=== PATIENT | male | born 1950 | race Caucasian/White ===

== ENCOUNTER 2022-09-19 07:46 | Outpatient (CLI) | payer MEDICARE, BC, SELFPAY ==
[2022-09-19 14:20] LABS: Albumin* 4.2 g/dL (3.3-5.0)
[2022-09-19 14:21] LABS: Chloride* 107 mmol/L (96-114); Potassium* 4.7 mmol/L (3.6-5.1); Sodium* 142 mmol/L (135-149)
[2022-09-19 14:23] LABS: Alkaline Phosphatase* 60 U/L (40-150); Aspartate Amino Transferase* 22 U/L (12-35); Bilirubin Total* 0.7 mg/dL (0.1-1.5); Blood Urea Nitrogen* 13 mg/dL (7-30); Carbon Dioxide* 29 mmol/L (20-32); Cholesterol* 130 mg/dL (90-199); Estimated Glomerular Filt Rate 80 ml/min; Total Protein* 6.8 g/dL (6.0-8.3)
[2022-09-19 14:24] LABS: Alanine Aminotransferase* 28 U/L (4-50); Calcium* 9.1 mg/dL (8.4-10.6); Glucose* 87 mg/dL (60-115); HDL Cholesterol* 48 mg/dL (>=40); LDL Cholesterol Calculated 64 mg/dL (<100); Triglycerides* 90 mg/dL (40-149)
[2022-09-19 14:49] LABS: PSA Screen* 2.69 ng/mL (0.10-4.00)
[2022-09-19 15:03] LABS: Hepatitis C Virus Antibody* Negative (Negative)
== END 2022-09-19 07:47 | disposition home or self-care (01) ==
PROVIDERS: PCP Family Medicine; Visit Provider Family Medicine
DX: Z00.00 Encounter for general adult medical examination without abnormal findings (principal); E78.5 Hyperlipidemia, unspecified; R35.1 Nocturia; Z12.5 Encounter for screening for malignant neoplasm of prostate; Z11.59 Encounter for screening for other viral diseases; Z13.6 Encounter for screening for cardiovascular disorders
CPT/HCPCS: 80053; 80061; 84153; 86803

== ENCOUNTER 2023-08-25 07:30 | Outpatient (RCR) | payer MEDICARE, BC, SELFPAY ==
--- NOTE | 2023-07-14 08:50 | PT.OPE ---
PT [facility] Eval PT [facility] Outpatient Eval Start: 07/13/23 16:33 Freq: Status: Active Protocol: Document 07/14/23 08:48 CJT (Rec: 07/14/23 08:50 CJT [id number]) E-signed By Sorin Luna PT Physical Therapy Outpatient Evaluation Insurance Information Recert Due Date 10/12/23 Insurance Name Medicare B Medical Diagnosis M25.512 - L shoulder pain Treating Diagnosis M25.512 - L shoulder pain Referring Yamilet Lloyd MD Subjective Subjective Pt presents with complaints of L shoulder pain ongoing since last winter. Pt fell on the ice last winter. Shoulder hurts whenever her bears weight through his L UE or raises his arm overhead. Pt points to lateral shoulder as the source of his pain. Is able to golf without pain. Lifting his arm out to the side recreates his pain. Notes an occasional nagging pain when his arm is by his side. No issues while sleeping. Was carrying a bag for about 30 minutes yesterday and this made his shoulder a bit sore. Has 8lb weight at home that he uses occasionally for arm and wrist strength. 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) Preferred Name Mook Precautions Therapy Limitations/Systems Review Not Limited Objective Other/Pertinent Objective Cervical ROM - WFL R Shoulder ROM Flexion/Abduction/IR/ER - 155/ 165/L1/100 L Shoulder ROM Flexion/Abduction/IR/ER - 140/ 150/L1/90 R Shoulder Strength Flexion - 5/5 MMT Abduction - 5/5 MMT IR - 5/5 MMT ER - 5/5 MMT Empty Can - 5/5 MMT L Shoulder Strength Flexion - 4+/5 MMT *pain in lateral shoulder Abduction - 4+/5 MMT *pain in lateral shoulder IR - 4/5 MMT *pain in lateral shoulder ER - 5/5 MMT Empty Can - 5/5 MMT R Scapular Strength Rhomboid - 4+/5 MMT Mid Trap - 4+/5 MMT Lower Trap - 4+/5 MMT L Scapular Strength Rhomboid - 4+/5 MMT Mid Trap - 4+/5 MMT Lower Trap - 4+/5 MMT Palpation: pt reports tenderness/pain with palpation to L UT, levator, pec major, LHBT, infraspinatus, rhomboids , and subscap Posture: slight forward rounding of shoulders, subtle forward head position [place]'s: mildly positive Crossover: positive Reyes-Román: positive Neers: negative Speeds: negative Assessment Assessment/Impression Mook is a very pleasant 73 year old male who presents to our clinic with complaints of L shoulder pain ongoing since sustaining a fall on the ice last November. HIs pain is made worse with elevation of the arm and pt points to the outside of his shoulder as the source of his pain. Testing reveals deficits in pts L shoulder AROM and strength ( see objective). While his elevation has a hard end feel when his arm is raised passively, I am not too concerned about adhesive capsulitis at this time as his internal and external rotation ROM is quite good. I suspect that Mook may have a small tear in his supraspinatus and potentially subscapularis, but due to his well-preserved strength, I expect him to recover well with therapy. The nature of the pts condition was explained and all questions were answered to the pts satisfaction. Skilled PT services are medically necessary to address deficits and return patient to highest level of function. Recommend physical therapy sessions 1-2/ week for 4-6 weeks. Pt agrees with this plan. Printout of HEP was given for I completion and pt gives verbal understanding of each exercise . Primary Functional Limitations Reaching, lifting, elevation of L arm Plan of Care Rehabilitation Potential Good Physical Therapy Goals STG - To be completed in 2-3 weeks: 1. Pt will demonstrate improved shoulder flexion and abduction by 10+ degrees so that they may reach for cans of soup on top shelf in pantry . 2. Pt will report reduction in shoulder pain by factor of 2 with elevation so that he may hang clothes in closet with minimal irritation to L shoulder. LTG - To be completed in 6-8 weeks: 1. Pt to be I with HEP so that they may I manage progression of symptoms. 2. Pt will demo full and pain free shoulder ROM and strength so that they may return to recreational exercise with their friends. Treatment Plan/Direct Interventions Joint Mobilization,Manual Therapy,Self-Care/Home Management,Therapeutic Activities,Therapeutic Exercises Frequency/Duration 1-2/week for 4-6 weeks Patient Will Be Discharged From Therapy Completion of LTG(s),Skills Plateau,Independent w/HEP, Independently Progressing Evaluation Billing Untimed Code Treatment Minutes 45 PT Eval No Charge No Complexity Low Certification Information Initial Certification Date 07/14/23 Ending Certification Date 10/12/23 Provider Signature Shows Agreement With POC & Medical Necessity Physician Signature & Date Requested Please Sign/Date Here Physician Comment/Change : Physician NPI Number #
--- NOTE | 2023-08-11 09:25 | PT.OPDN ---
PT [facility] Outpatient Daily Note PT [facility] Outpatient Daily Note Start: 07/13/23 16:33 Freq: Status: Active Protocol: Document 08/11/23 07:22 CJT (Rec: 08/11/23 09:25 CJT [id number]) E-signed By Sorin Luna, PT PT OP Daily Progress Note Visit Information Note Type Recert/Progress Note Visit Number 6 Insurance Authorized Visits tbd Physician Authorized Visits eval and treat Insurance Information Recert Due Date 10/12/23 Insurance Name Medicare B Medical Diagnosis M25.512 - L shoulder pain Treating Diagnosis M25.512 - L shoulder pain Referring Yamilet Lloyd MD Subjective Subjective Pt doing well. Notes that his shoulder has been feeling better all week but still having a dull ache when he uses his L arm. Enjoyed exercises last week and these are going well at home. Feels these have been more appropriate for him. Preferred Name Mook Home Exercise Home Exercise Comments [id number] Objective Other/Pertinent Objective L Shoulder ROM Flexion/Abduction/IR/ER - 140/ 160/L1/90 L Shoulder Strength Flexion - 5/5 MMT *pain in lateral shoulder Abduction - 4+/5 MMT *minimal pain noted in lateral shoulder IR - 5/5 MMT ER - 5/5 MMT Empty Can - 5/5 MMT Patient Instructed in Risks/Benefits Yes Therapeutic Exercise Therapeutic Exercise Minutes (minutes) 40 Therapeutic Exercise: To Restore UBE x 4 minutes, alternating Functional Status fwd/back Shoulder IR/ER in 45 degrees abduction x 20 ea, RTB DB Scaption, 1#, 2# 2 x 15 Horizontal abduction, GTB x 15 Sleeper stretch at wall x 45 Supine shoulder flexion stretch with weighted dowel 2 x 60 Passive shoulder IR and flexion stretches in supine 2 x 60 ea Treatment Minutes Timed Code Treatment Minutes 40 Total Treatment Time 40 Billing Units Therapeutic Exercise Units 3 Assessment/Impression Assessment/Impression Mook has made significant progress during his time in PT , but his ROM in L shoulder flexion and IR remains limited and unchanged. The strength of his RTC is full at this time and has has minimal to no pain with testing. I do think Mook's primary issue at this time is adhesive capsulitis. He dose have signs of impingement in his shoulder but I think this is likely due to adhesive capsulitis versus RTC weakness as his RTC is strong. I think Mook would benefit from a referral to orthopedics for consultation on a cortisone injection as well as x-rays of the shoulder to determine the extent of any arthritis that may also be playing a role in his pain. For now, I have advised Mook to continue stretching consistently over the next two weeks and I will see him again for reassessment on 08/07. Plan of Care Physical Therapy Goals STG - To be completed in 2-3 weeks: 1. Pt will demonstrate improved shoulder flexion and abduction by 10+ degrees so that they may reach for cans of soup on top shelf in pantry . 2. Pt will report reduction in shoulder pain by factor of 2 with elevation so that he may hang clothes in closet with minimal irritation to L shoulder. MET LTG - To be completed in 6-8 weeks: 1. Pt to be I with HEP so that they may I manage progression of symptoms. 2. Pt will demo full and pain free shoulder ROM and strength so that they may return to recreational exercise with their friends. Daily Plan of Care Continue per POC Recertification Information Provider Signature Shows Agreement With POC & Medical Necessity
== END 2023-09-26 10:33 | disposition home or self-care (01) ==
PROVIDERS: PCP Family Medicine; Visit Provider Family Medicine
DX: M25.512 Pain in left shoulder (principal); Z51.89 Encounter for other specified aftercare
CPT/HCPCS: 97110; 97140; 97161

== ENCOUNTER 2023-08-30 15:04 | Outpatient (CLI) | payer MEDICARE, BC, SELFPAY ==
--- NOTE | 2023-08-30 15:30 | MR_ITS ---
[facility] [address] [address] Phone:?[phone] Fax:?[phone] Referring Physician Information: Kwan Wright M.D. [address] [address] Phone:?[phone] Fax:?[phone] Patient:Sandra Lewis D.O.B:?1950 Sex:?Male Phone:?[phone] [facility] MRN:?[id number] Exam Date:?08/30/2023 EXAM: MRI of the LEFT SHOULDER, without contrast CLINICAL: Left shoulder pain. Evaluate for rotator cuff tear. COMPARISONS: None available. TECHNICAL: Multiplanar multisequence MRI of the left shoulder was obtained. SEDATION: None. CONTRAST: None. FINDINGS: Rotator cuff: Supraspinatus/Infraspinatus: There is high-grade partial/near full-thickness interstitial insertional tearing of the distal supraspinatus tendon measuring approximately 5 mm in AP dimension on coronal series 5 images 10-11 and sagittal series 8 image 7 superimposed upon moderate tendinosis. There is mild tendinosis of the distal infraspinatus tendon without significant tendon tear. No significant fatty atrophy of the muscle bellies. Teres minor: No tendinosis, tear or atrophy. Subscapularis: No tendinosis, tear or atrophy. Bursae: Subacromial-subdeltoid: Mild bursal fluid. Subcoracoid: No significant bursal fluid. Coracoacromial arch: Acromion morphology: Type II. No os acromiale. Acromiohumeral space: Within normal limits. Coracohumeral space: Within normal limits. Biceps tendon, long head: Intraarticular and extraarticular segments intact without rupture, tendinopathy or displacement. There is mild fluid about the imaged proximal extra-articular tendon. Glenohumeral joint: Physiologic volume of joint fluid. Articular cartilage: No significant chondral loss. Capsule: No convincing evidence of capsular thickening or injury. Labrum: Ill-defined degenerative changes are seen to involve the anteroinferior labrum. Labrum otherwise appears intact as visualized on this nonarthrogram exam. No perilabral cyst identified. Bones: No suspicious marrow signal alteration, fracture or dislocation. Acromioclavicular joint: Advanced changes of arthrosis with inferior hypertrophic change seen to encroach upon the underlying supraspinatus. No AC joint injury/widening. IMPRESSION: 1. High-grade partial/near full-thickness tearing involving the insertional fibers of the distal supraspinatus tendon superimposed upon moderate tendinosis. Mild tendinosis of the infraspinatus tendon without significant tendon tear. 2. 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 3. Mild subacromial/subdeltoid bursitis. 4. Ill-defined degenerative changes involving the anteroinferior labrum. JCZ Electronically signed on 08/31/2023 8:40:00 AM by Pierre Matos D.O.
== END 2023-08-30 15:05 | disposition home or self-care (01) ==
PROVIDERS: PCP Family Medicine; Visit Provider Orthopaedic Surgery
DX: M25.512 Pain in left shoulder (principal); M75.101 Unspecified rotator cuff tear or rupture of right shoulder, not specified as traumatic; M19.011 Primary osteoarthritis, right shoulder; M75.51 Bursitis of right shoulder
CPT/HCPCS: 73221

== ENCOUNTER 2023-09-26 08:01 | Outpatient (CLI) | payer MEDICARE, BC, SELFPAY | END 2023-09-26 08:02 | disposition home or self-care (01) | PROVIDERS: PCP Family Medicine; Visit Provider Family Medicine | DX: Z00.00 Encounter for general adult medical examination without abnormal findings (principal); I10 Essential (primary) hypertension; E78.5 Hyperlipidemia, unspecified; Z12.5 Encounter for screening for malignant neoplasm of prostate | CPT/HCPCS: 80053; 80061; 84153 ==

== ENCOUNTER 2023-10-02 07:51 | Outpatient (CLI) | payer MEDICARE, BC, SELFPAY ==
--- NOTE | 2023-10-02 08:15 | CRLHL7_ITS ---
For Patients: As a result of the Century Cures Act, medical imaging exams and procedure reports are released immediately into your electronic medical record. You may view this report before your referring provider. If you have questions, please contact your health care provider. INDICATION: Smoking history. Atherosclerotic vascular disease. TECHNIQUE : Directed abdominal aortic and proximal common iliac artery ultrasound. FINDINGS: Mildly tortuous abdominal aorta and proximal common iliac arteries. Mildly ectatic distal abdominal aorta. Minimal scattered atherosclerotic plaque. No aneurysm. The proximal abdominal aorta measures 2.2 x 3 cm. The mid aorta measures 2.1 x 1.9 cm. The distal aorta measures 2.2 x 2.0 cm. The right proximal common iliac artery measures 1.2 x 1.4 cm. The left common iliac artery measures 1.2 x 1.3 cm. IMPRESSION: Mild ectasia of the distal abdominal aorta. No marilyn aneurysm. Scattered atherosclerotic plaque. Dictated by Brad Mays MD @ 10/02/2023 8:48:27 AM (Electronically Signed)
== END 2023-10-02 07:52 | disposition home or self-care (01) ==
LOC: US 07:51
PROVIDERS: PCP Family Medicine; Visit Provider Family Medicine
DX: I70.90 Unspecified atherosclerosis (principal); I70.0 Atherosclerosis of aorta; Z87.891 Personal history of nicotine dependence
CPT/HCPCS: 76706

== ENCOUNTER 2023-12-01 09:41 | Outpatient (CLI) | payer MEDICARE, SELFPAY ==
--- OUTSIDE RECORDS SUMMARY | 2023-12-01 09:43 | XMS_ITS | Encounter Summary ---
Author Name [facility] Organization [facility] Address [address] [place] [address] Support Name Relationship Address Phone JUANPABLOTYLER Next of Kin [address] [place] [id number] TYLER GERONIMO Emergency Contact [address] [place] [address] Insurance Providers: All historical and current Section Date Range: From patient's date of to the date document was created. This section includes the names of all active insurance providers for the patient. Insurance Provider Type of Coverage Plan Name Start of Policy Coverage End of Policy Coverage Group Number Member ID Insurance Provider's Telephone Number Policy Hare's Name Patient's Relationship to Policy Hare [place] SUPPLEMEN [place]ADELINE MEDIC ARE SUPPL EMENT Sep 15, 2017 [id number] [phone] JUANPABLO,YUAN AIG PATIENT MEDICARE (WNR) MEDICARE (M) PART A Jan 14, 2015 PART A [id number] [phone] JUANPABLO,CR AIG PATIENT MEDICARE (WNR) MEDICARE (M) PART B Jan 14, 2015 PART B [id number] [phone] JUANPABLO,CR AIG PATIENT MEDICARE (WNR) MEDICARE (M) PART A Jan 14, 2015 PART A [id number] [phone] JUANPABLO,CR AIG PATIENT MEDICARE (WNR) MEDICARE (M) PART B Jan 14, 2015 PART B [id number] [id number] [phone] JUANPABLO,CR AIG PATIENT [employer] [place] SUPPLEMEN [place]AD[place] INDIV IDUAL MEDI Sep 15, 2017 [id number] [phone] YUAN GERONIMO PATIENT Selected Encounter This section includes the information on record at [facility] for the Encounter. Date/Time Encounter Type Encounter Description Reason Provider Source Apr 21, 2023 08:40 AM OFFICE O/P EST LOW 20-29 MIN OPHTHALMOLOGY ICD-10-CM H34.8312 Tributary (branch) retinal vein occlusion, right eye, stable JENNIFER RODRIGUEZ Sheng Encounter Template Text not used by [facility] Assessments - Encounter Diagnoses This section includes the primary and secondary diagnoses documented for the Encounter. Date/Time Primary/Secondary Diagnosis Diagnosis Name Provider Source Apr 21, 2023 09:21 AM PRIMARY Tributary (branch) retinal vein occlusion, right eye, stable GENNY RODRIGUEZ [facility] Apr 21, 2023 09:21 AM SECONDARY Age-related nuclear cataract, bilateral GENNY RODRIGUEZ [facility] Apr 21, 2023 09:21 AM SECONDARY Other chorioretinal scars, right eye GENNY RODRIGUEZ [facility] Plan of Treatment: Future Appointments (+ 6 months) and Future Tests (+/- 45 days) The Plan of Treatment section includes future care activities for the patient from all [facility]. This section includes future appointments and future orders which are active, pending or scheduled. Future Appointments This section includes appointments that were scheduled to occur 6 months from the date of the Encounter, up to a maximum of 20 appointments. The data comes from all [facility] treatment facilities. Appointment Date/Time Appointment Type Appointme nt Facility Name Sep 14, 2023 12:00 PM AMBULATORY - [facility]INE [facility] Social History: Smoking Status (Most current) and Tobacco Use (All prior to encounter date) This section includes the most current, and the historical, smoking and tobacco- related health factors from the [facility] facility where the Encounter took place. Current Smoking Status This section includes the most current smoking, or tobacco-related health factor, from the [facility] facility where the Encounter took place. Date/Time Current Smoking Status Comment Lluvia lopez Dec 21, 2022 08:15 AM VA-TOBACCO FORMER USER [facility] Tobacco Use History This section includes a history of the smoking, or tobacco-related health factors, that were collected on or before the date of the Encounter. The data comes from the [facility] facility where the Encounter took place. Date/Time Smoking Status/Tobacco Use Comment F acility Dec 21, 2022 08:15 AM VA-TOBACCO QUIT 15 YRS OR MORE [facility] Nov 29, 2021 09:00 AM VA-TOBACCO FORMER USER [facility] Nov 29, 2021 09:00 AM VA-TOBACCO QUIT 15 YRS OR MORE [facility] Mar 27, 2019 03:22 PM VA-TOBACCO FORMER USER [facility] Mar 27, 2019 03:22 PM VA-TOBACCO QUIT 15 YRS OR MORE [facility] Encounter Notes: All associated encounter notes This section contains the clinical notes associated to the Encounter. Date/Time Encounter Note(s) Provider Source Apr 21, 2023 09:16 AM OPHTHALMOLOGY ATTE NDING NOTE: LOCAL TITLE: OPHTHALMOLOGY CLINIC NOTE STANDARD TITLE: OPHTHALMOLOGY ATTENDING NOTE DATE OF NOTE: APR 21, 2023@09:16 ENTRY DATE: APR 21, 2023@09:17:01 AUTHOR: JENNIFER RODRIGUEZ COSIGNER: URGENCY: STATUS: COMPLETED Clinic Progress Note Chief complaint: Here for a Complete eye exam. Patient states he hasn't noticed any vison changes OU since last visit. States his eyes water at times. Problem List - Active - NONE FOUND Surgeries: SURGERIES - NONE FOUND Full Exam Eye Medications Patient denies eye medication use. Allergies: Patient has answered NKA No new Allergies. Past eye history: Cataracts : OU Past eye surgeries: Cataract: OU Other: BRVO OD, Chorioretinal scar OD Social History: Alcohol use - Yes Tobacco use - No Last refraction: Vision: OD:CC(with glasses) OD: 20/20 Pinhole: 20/ Near: 20/ Vision: OS:CC(with glasses) 0S: 20/20-1 Pinhole: 20/ Near: 20/ Current glasses: OD:-3.25 +1.58R130 Prism: OS:-3.50 +1.57Q385 Prism: Add: +2.50 Refraction: Manifest: YES Automated: NO OD:-3.25 +1.20S508 20/20 OS:-3.50 +1.76C394 20/20-1 Balance: Add: +2.50 Near vision: OD : OS : OU 20/20 Comment: Confrontational Doss: Full to finger counting: Right: Yes Left: Yes Extra Ocular Movement: Normal Pupils: Right: Round Left: Round Size: Right: 4.5 Left: 4.5 React to light: Right: Yes Left: Yes Afferent pupil defect: Right:No Grade: Left: No Grade: Note: Intra-ocular pressure (IOP): OD: 17 OS: 20 iCare Dilation: OU AT 8:59 AM I have reviewed the isotope technician's note and agree with their findings. Patient is alert and oriented x 3. SLE, both eyes: lids/lashes: no abnormality conjunctiva/sclera: white and quiet cornea: clear epithelium, stroma, and no guttae anterior chamber: deep and quiet iris: round and flat lens: 1-2+ NSC anterior vitreous: clear DFE, right eye: vitreous: clear optic nerve: 0.3 cup/disc, pink and healthy macula: sharp foveal light reflex vessels: normal caliber and distribution periphery: CR scar DFE, left eye: vitreous: clear optic nerve: 0.3 cup/disc, pink and healthy macula: sharp foveal light reflex vessels: normal caliber and distribution periphery: normal without holes or tears OS Impression/Plan: 1. 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 No sequelae. - Monitor 2. Chorioretinal scar OD, - No associated CNV. - Monitor 3. Cataracts OU, incipient. - Monitor RTC 1 year vtd mr ou /es/ JENNIFER RODRIGUEZ M.D. DISABILITY REPRESENTATIVE Signed: 04/21/2023 09:23 JENNIFER RODRIGUEZ [facility] Apr 21, 2023 08:43 AM OPHTHALMOLOGY TECH NICIAN NOTE: LOCAL TITLE: RIGGING MAN NOTE STANDARD TITLE: RIGGING MAN NOTE DATE OF NOTE: APR 21, 2023@08:43 ENTRY DATE: APR 21, 2023@08:43:13 AUTHOR: ESTEFANIA DAN EXP COSIGNER: URGENCY: STATUS: COMPLETED Eye Start Exam Patient: RAQUEL GERONIOM Sex: MALE SSN: [id number] Birthdate: [birth year] Chief complaint: Here for a Complete eye exam. Patient states he hasn't noticed any vison changes OU since last visit. States his eyes water at times. History of Present Illness: Location: Intensity: Duration: Problem List - Active - NONE FOUND Surgeries: SURGERIES - NONE FOUND Full Exam Eye Medications Patient denies eye medication use. Allergies: Patient has answered NKA No new Allergies. Past eye history: Cataracts : OU Past eye surgeries: Cataract: OU Other: BRVO OD, Chorioretinal scar OD Social History: Alcohol use - Yes Tobacco use - No Last refraction: Vision: OD:CC(with glasses) OD: 20/20 Pinhole: 20/ Near: 20/ Vision: OS:CC(with glasses) 0S: 20/20-1 Pinhole: 20/ Near: 20/ Current glasses: OD:-3.25 +1.73K591 Prism: OS:-3.50 +1.75I285 Prism: Add: +2.50 Refraction: Manifest: YES Automated: NO OD:-3.25 +1.18J974 20/20 OS:-3.50 +1.67B236 20/20-1 Balance: Add: +2.50 Near vision: OD : OS : OU 20/20 Comment: Confrontational Doss: Full to finger counting: Right: Yes Left: Yes Extra Ocular Movement: Normal Pupils: Right: Round Left: Round Size: Right: 4.5 Left: 4.5 React to light: Right: Yes Left: Yes Afferent pupil defect: Right:No Grade: Left: No Grade: Note: Intra-ocular pressure (IOP): OD: 17 OS: 20 iCare Dilation: OU AT 8:59 AM /steffi/ ESTEFANIA DAN Health Accounting Policy Consultant Signed: 04/21/2023 09:04 ESTEFANIA DAN [facility]
--- OUTSIDE RECORDS SUMMARY | 2023-12-01 09:43 | XMS_ITS | Encounter Summary ---
Author Name [facility] Organization [facility] Address [address] [place] [address] Support Name Relationship Address Phone JUANPABLO TYLER Next of Kin [address] [place], [place] [id number] TYLER GERONIMO Emergency Contact [address] [place], [place] [phone] Insurance Providers: All historical and current Section [...] MEDIC ARE SUPPL EMENT Sep 15, 2017 [id number] [phone] JUANPABLO,CR AIG PATIENT MEDICARE (WNR) MEDICARE (M) PART A Jan 14, 2015 PART A [id number] [phone] JUANPABLO,CR AIG PATIENT MEDICARE (WNR) MEDICARE (M) PART B Jan 14, 2015 PART B [id number] [phone] JUANPABLO,CR AIG PATIENT MEDICARE (WNR) MEDICARE (M) PART A Jan 14, 2015 PART A [id number] JUANPABLO,CR AIG PATIENT MEDICARE (WNR) MEDICARE (M) PART B Jan 14, 2015 PART B [id number] [phone] JUANPABLO,CR AIG PATIENT [employer] [place] SUPPLEMEN [place]ADELINE [place] INDIV IDUAL MEDI Sep 15, 2017 [id number] [phone] YUAN GERONIMO AIKayla PATIENT Selected Encounter This section includes the information on record at [place] for the Encounter. Date/Time Encounter Type Encounter Description Reason Provider Source Sep 14, 2023 12:00 PM Outpatient Encounter GENERAL INTERNAL MEDICINE ICD-10-CM Z02.71 Encounter for disability determination KYUNG ANDRADE [facility] Encounter Template Text not used by [place] Assessments - Encounter Diagnoses This section includes the primary and secondary diagnoses documented for the Encounter. Date/Time Primary/Secondary Diagnosis Diagnosis Name Provider Source Sep 14, 2023 11:16 AM PRIMARY Encounter for disability determination KYUNG ANDRADE [facility] Plan of Treatment: Future Appointments (+ 6 months) and Future Tests (+/- 45 days) The Plan of Treatment section includes future care activities for the patient from all [place] treatmentfacilities. This section includes future appointments and future orders which are active, pending or scheduled. Future Appointments This section includes appointments that were scheduled to occur 6 months from the date of the Encounter, up to a maximum of 20 appointments. The data comes from all [place] treatment facilities. Appointment Date/Time Appointment Type Appointme nt Facility Name Dec 21, 2023 09:00 AM AMBULATORY - NONE [facility] Dec 21, 2023 10:00 AM [facility] Encounter Notes: All associated encounter notes This section contains the clinical notes associated to the Encounter. Date/Time Encounter Note(s) Provider Source Sep 14, 2023 12:00 PM C & P EXAMINATION NOTE: LOCAL TITLE: C&P EXAMINATION STANDARD TITLE: C & P EXAMINATION NOTE DATE OF NOTE: SEP 14, 2023@12:00 ENTRY DATE: SEP 14, 2023@08:24:46 AUTHOR: KYUNG ANDRADE EXP COSIGNER: URGENCY: STATUS: COMPLETED Hypertension Disability Benefits Questionnaire Name of claimant/[place]: JUANPABLO GARCÍA Is this questionnaire being completed in conjunction with a [place] [id number], C&P Examination Request? [X] Yes [ ] No How was the examination completed? (check all that apply) [ ] In-person examination [X] Records reviewed [ ] Examination via approved video telehealth [ ] Other, please specify in comments box Comments: No response provided. Acceptable Clinical Evidence (GREGG) ------ Indicate method used to obtain medical information to complete this document: [X] Review of available records (without in-person or video telehealth examination) using the Acceptable Clinical Evidence (GREGG) process because the existing medical evidence provided sufficient information on which to prepare the questionnaire and such an examination will likely provide no additional relevant evidence. Evidence Review Evidence reviewed (check all that apply): [X] [place] electronic [place] record [X] [place] e-[place] [X] Other (please identify other evidence reviewed): [facility] DD 214 1. Diagnosis NOTE 1: For VA disability rating purposes, the term hypertension means that the diastolic blood pressure is predominantly 90mm or greater, and isolated systolic hypertension means that the systolic blood pressure is predominantly 160mm or greater with a diastolic blood pressure of less than 90mm. NOTE 2: For VA purposes, the INITIAL diagnosis of hypertension or isolated systolic hypertension must be confirmed by readings taken 2 or more times on at least 3 different days. Blood pressure results may be obtained from existing medical records or through scheduled visits for blood pressure measurements. 1A. Does the currently have a diagnosis of hypertension or isolated systolic hypertension based on the following criteria? [X] Yes [ ] No [X] Hypertension ICD code: I10 Date of diagnosis: UNKNOWN NOTE 3: ALSO complete appropriate questionnaires for hypertension-related complications, if any (such as Kidney, if renal insufficiency is attributable to hypertension). 2. Medical History 2A. Describe the history (including onset and course) of the 's hypertension condition (brief summary): FOLLOWED BY [facility] 2B. Does the [place]'s treatment plan include taking continuous medication for hypertension or isolated systolic hypertension? [X] Yes [ ] No If yes, list only those medications used for the diagnosed conditions: ENALAPRIL 2C. Was the 's initial diagnosis of hypertension or isolated systolic hypertension confirmed by blood pressure (BP) readings taken 2 or more times on at least 3 different days? [ ] Yes [ ] No [X] Unknown (If checked, proceed to questions 2D and 2E) 2D. Does the [place] have a history of a diastolic BP elevation to predominantly 100 or more? [ ] Yes [X] No 2E. Current (date of evaluation/s) blood pressure readings (sufficient if has a previously established diagnosis of hypertension): Reading #1: 121 / 82 Date of Readin12 21 2022 Reading #2: 136 / 72 Date of Readin11 29 2021 Reading #3: 127 / 82 Date of Readin04 29 2019 The should be seated comfortably with back and feet supported. There is no need to take lying or standing blood pressures. There is no specified time interval between readings and they may be completed sequentially. 3. Other Pertinent Physical Findings, Complications, Conditions, Signs, Symptoms and Scars 3A. Does the [place] have any other pertinent physical findings, complications, conditions, signs or symptoms related to the conditions listed in the Diagnosis Section above? [ ] Yes [X] No 3B. Does the have any scars (surgical or otherwise) related to any conditions or to the treatment of any conditions listed in the Diagnosis Section above? [ ] Yes [X] No 3C. Comments, if any: No response provided 4. Functional Impact Does the [place]'s hypertension or isolated systolic hypertension impact his or her ability to work? [ ] Yes [X] No 5. Remarks, If Any [place]LL[place] /steffi/ KYUNG ANDRADE NP NURSE PRACTITIONER Signed: 09/14/2023 08:24 KYUNG ANDRADE [facility]
--- OUTSIDE RECORDS SUMMARY | 2023-12-01 09:43 | XMS_ITS | Continuity of Care Document ---
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 It does not include entries that were removed or entered in error. Problem Status Onset Date Problem Type Date of Resolution Comments Source Hyperlipidemia Active Condition [facility] Hypertension Active Condition [facility] Polyp of colon Active Condition [facility] Diagnosis: ICD-10-CM Z02.71 Encounter for disability determination Active Diagnosis ELSI LEVY [facility] Diagnosis: ICD-10-CM H34.8312 Tributary (branch) retinal vein occlusion, right eye, stable Active Diagnosis [facility] Diagnosis: ICD-10-CM Z00.01 Encounter for general adult medical exam w abnormal findings Active Diagnosis [facility] Medications Combined list of outpatient medications from Department of [facility] and Veterans Affairs facilities.Medications provided include 1) outpatient medications from the last 15 months, and 2) patient-reported medications. Medication Details Route Status Patient Instructions Prescription Expires Prescription Number Last Dispense Date Ordering Provider Order Date Source ATORVASTATI N [place] 40MG TAB TAKE ONE-HALF TABLET BY MOUTH AT BEDTIME ORALLY ACTIVE CLARITZA 2018 [facility] ATORVASTATI N [place] 40MG TAB TAKE ONE-HALF TABLET BY MOUTH EVERY DAY ORAL ACTIVE [place] WALKER T [address] [facility] [facility] ENALAPRIL MALEATE 5MG TAB TAKE ONE TABLET BY MOUTH TWICE A DAY ORALLY ACTIVE CLARITZA 2018 [facility] ENALAPRIL MALEATE 5MG TAB TAKE ONE TABLET BY MOUTH TWICE A DAY ORAL ACTIVE LOUISE WALKER T 2016 [facility] MELATONIN CAP/TAB TAKE 10MG BY MOUTH AT BEDTIME ORALLY ACTIVE GILLES TREVIÑO 2018 [facility] Immunizations Combined list of available immunizations from the Department of Defense and Veterans Affairs facilities. Immunization Series Date Given Administered By Site Reaction Lot Number CVX Code Drug Front Office Java Developer Status Comments Source INFLUENZA, UNSPECIFIED FORMULATION 2020 88 complet ed [facility] COVID-19 (PFIZER), MRNA, LNP-S, PF, 30 MCG/0.3 ML DOSE 2 2020 208 complet ed PFR; [id number]; 1 [facility] COVID-19 (PFIZER), MRNA, LNP-S, PF, 30 MCG/0.3 ML DOSE 1 2020 208 complet ed PFR; [id number]; 1 [facility] TDAP 2018 115 complet ed [facility] ZOSTER RECOMBINANT 2 2018 187 complet ed [facility] ZOSTER RECOMBINANT 1 2017 187 complet ed [facility] INFLUENZA, INJECTABLE, QUADRIVALENT, PRESERVATIVE FREE 2017 150 complet ed [facility] INFLUENZA, SEASONAL, INJECTABLE 2016 141 complet ed [facility] INFLUENZA, HIGH DOSE SEASONAL 2015 135 complet ed [facility] PNEUMOCOCCAL CONJUGATE PCV 13 2015 133 complet ed [facility] INFLUENZA, HIGH DOSE SEASONAL 2014 135 complet ed [facility] TDAP 2014 115 complet ed [facility] PNEUMOCOCCAL POLYSACCHARID E PPV23 2013 33 complet ed [facility] Z[facility] LIVE 2010 121 complet ed [facility] Vital Signs Combined list of inpatient and outpatient Vital Signs from Department of [facility] and Veterans Affairs, ranging from 12 months to all on record, depending upon the facility. Vital Sign Value Date Comments Source SYSTOLIC BLOOD PRESSURE 121 12/21/2022 08:11:52 [facility] DIASTOLIC BLOOD PRESSURE 82 12/21/2022 08:11:52 [facility] PULSE OXIMETRY 96% 12/21/2022 08:11:52 [facility] WEIGHT 172.9 12/21/2022 08:11:52 [facility] BMI 27kg/m2 12/21/2022 08:11:52 [facility] PAIN 0 12/21/2022 08:11:52 [facility] HEIGHT 67 12/21/2022 08:11:52 [facility] TEMPERATURE 98.3 12/21/2022 08:11:52 [facility] PULSE 78 12/21/2022 08:11:52 [facility] RESPIRATION 17 12/21/2022 08:11:52 [facility] Encounters Combined list of: 1) Encounters from Department of Veterans Affairs facilities going back up to thelast 18 months. 2) Encounters from the Department of [facility] facilities going back up to 280 months. Location Location Details Encounter Type Encounter Number Reason For Visit Attending Provider ADM Date DC Date Status Disposition Source [facility] Outpatient Encounter [id number] Diagnos is: ICD-10- CM Z00.01 Encount er for general adult medical exam w abnorma l finding s
SYLMATH ILDE J 12/21 [facility] OFFICE O/P EST LOW 20-29 MIN [id number] Diagnos is: ICD-10- CM H34.831 2 Tributa ry (branch ) retinal vein occlusi on, right eye, stable< br/> GIORGIO RODRIGUEZ A 04/21 [facility] Outpatient Encounter [id number] Diagnos is: ICD-10- CM Z02.71 Encount er for disabil ity determi nation< br/> SHAHZAD ANDRADE DA 09/14 [facility] SNELLIN [facility] Social History Combined list of available smoking, tobacco, and other social history from Department of Defense and [facility] facilities. Social History Type Response Date Comment Sourc e Tobacco smoking status NHIS AL-TOBACCO FORMER USER 12/21/2022 [facility] History of tobacco use AL-TOBACCO QUIT 1 5 YRS OR MORE 12/21/2022 [facility] History of tobacco use AL-TOBACCO FORMER USER 11/29/2021 [facility] History of tobacco use VA-TOBACCO QUIT 1 5 YRS OR MORE 03/27/2019 [facility] History of tobacco use AL-TOBACCO FORMER USER 12/07/2018 [facility] History of tobacco use FORMER TOBACCO US ER 7Y OR GREATER 12/24/2015 [facility] Plan of Care List of future care activities from Department of [facility] Affairs facilities. Additional future care activities may be listed in the Assessment and Plan section. Date/Time Care Activity Care Activity Detail Facili ty 12/21/2023 AMBULATORY - NONE AMBULATORY - NONE [facility] 12/21/2023 AMBULATORY - MEDICINE AMBULATORY - MEDICI [facility] 04/15/2024 AMBULATORY - SURGERY AMBULATORY - SURGERY [facility] 12/22/2023 Laboratory - Contracting Support Specialist ry Order COMPREHENSIVE METABOLIC PANEL+MG PLASMA SP ONCE [facility] 12/22/2023 Laboratory - Contracting Support Specialist ry Order CBC and DIFF BLOOD SP [facility] 12/22/2023 Laboratory - Contracting Support Specialist ry Order HEMOGLOBIN A1C BLOOD SP [facility] 12/22/2023 Laboratory - Contracting Support Specialist ry Order LIPID PANEL,NON-FASTING PLASMA SP [facility] 12/22/2023 Laboratory - Contracting Support Specialist ry Order PSA SERUM SP [facility]
--- OUTSIDE RECORDS SUMMARY | 2023-12-01 09:43 | XMS_ITS | Encounter Summary ---
Author Name [facility] Organization [facility] Address [address] [place] [address] Support Name Relationship Address Phone JUANPABLO TYLER Next of Kin [address] [place] [id number] TYLER GERONIMO Emergency Contact [address] [place] [address] Insurance Providers: All historical and current [...] MEDIC ARE SUPPL EMENT Sep 15, 2017 [id number] [phone] JUANPABLO,CR AIG PATIENT MEDICARE (WNR) MEDICARE (M) PART A Jan 14, 2015 PART A [id number] [phone] JUANPABLO,CR AIG PATIENT MEDICARE (WNR) MEDICARE (M) PART B Jan 14, 2015 PART B [id number] [phone] JUANPABLO,CR AIG PATIENT MEDICARE (WNR) MEDICARE (M) PART A Jan 14, 2015 PART A [id number] [phone] JUANPABLO,CR AIG PATIENT MEDICARE (WNR) MEDICARE (M) PART B Jan 14, 2015 PART B [id number] JUANPABLO,CR AIG PATIENT [employer] [place] SUPPLEMEN MADELINE [place] INDIV IDUAL MEDI Sep 15, 2017 [id number] [phone] YUAN GERONIMO PATIENT Selected Encounter This section includes the information on record at [facility] for the Encounter. Date/Time Encounter Type Encounter Description Reason Provider Source Dec 21, 2022 08:15 AM Outpatient Encounter PRIMARY CARE/MEDICINE ICD-10-CM Z00.01 Encounter for general adult medical exam w abnormal findings HAYLEE STREETER Sheng Encounter Template Text not used by [facility] Assessments - Encounter Diagnoses This section includes the primary and secondary diagnoses documented for the Encounter. Date/Time Primary/Secondary Diagnosis Diagnosis Name Provider Source Dec 21, 2022 04:47 PM PRIMARY Encounter for general adult medical exam w abnormal findings LEA STREETER [facility] Dec 21, 2022 04:47 PM SECONDARY Benign prostatic hyperplasia with lower urinary tract symp [facility] Dec 21, 2022 04:47 PM SECONDARY Essential (primary) hypertension [facility] Dec 21, 2022 04:47 PM SECONDARY Other hyperlipidemia [facility] Plan of Treatment: Future Appointments (+ 6 months) and Future Tests (+/- 45 days) The Plan of Treatment section includes future care activities for the [facility] This section includes future appointments and future orders which are active, pending or scheduled. Future Appointments This section includes appointments that were scheduled to occur 6 months from the date of the Encounter, up to a maximum of 20 appointments. The data comes from all [facility] treatment facilities. Appointment Date/Time Appointment Type Appointme nt Facility Name Jan 24, 2023 07:00 AM AMBULATORY - NONE [facility] Apr 21, 2023 08:40 AM AMBULATORY - SURGERY [facility] Vital Signs: All taken on the encounter date This section contains inpatient and outpatient Vital Signs collected on the date of the Encounter. Date/Time Temperature Pulse Blood Pressure Respiratory Rate SP02 Pain Height Weight Body Mass Index Source Dec 21, 2022 08:11 AM 98.3 F 78 /min 121/82 mm[Hg] 17 /min 96 % 0 67 in 172.9 lb 27 [facility] Social History: Smoking Status (Most current) and Tobacco Use (All prior to encounter date) This section includes the most current, and the historical, smoking and tobacco- related health factors from the [facility] facility where the Encounter took place. Current Smoking Status This section includes the most current smoking, or tobacco-related health factor, from the [facility] where the Encounter took place. Date/Time Current Smoking Status Comment Lluvia lopez Dec 21, 2022 08:15 AM VA-TOBACCO FORMER USER [facility] Tobacco Use History This section includes a history of the smoking, or tobacco-related health factors, that were collected on or before the date of the Encounter. The data comes from the [facility] where the Encounter took place. Date/Time Smoking Status/Tobacco Use Comment Romie nunez Dec 21, 2022 08:15 AM VA-TOBACCO QUIT 15 YRS OR MORE [facility] Nov 29, 2021 09:00 AM VA-TOBACCO FORMER USER [facility] Nov 29, 2021 09:00 AM VA-TOBACCO QUIT 15 YRS OR MORE [facility] Mar 27, 2019 03:22 PM VA-TOBACCO FORMER USER [facility] Mar 27, 2019 03:22 PM VA-TOBACCO QUIT 15 YRS OR MORE [facility] Encounter Notes: All associated encounter notes This section contains the clinical notes associated to the Encounter. Date/Time Encounter Note(s) Provider Source Dec 21, 2022 08:13 AM INTERNAL MEDICINE OUTPATIENT NOTE: LOCAL TITLE: MEDICINE CLINIC NURSING NOTE STANDARD TITLE: INTERNAL MEDICINE OUTPATIENT NOTE DATE OF NOTE: DEC 21, 2022@08:13 ENTRY DATE: DEC 21, 2022@08:13:12 AUTHOR: LILY DYER COSIGNER: URGENCY: STATUS: COMPLETED MEDICINE CLINIC NURSING NOTE Has ADDENDA TYPE OF VISIT: Appointment Check In Type of appointment: In-person appointment REASON FOR VISIT: Annual Dr visit check in ALLERGIES: Patient has answered NKA VITAL SIGNS: Blood Pressure: 121/82 (12/21/2022 08:11) Pulse: 78 (12/21/2022 08:11) Respiration: 17 (12/21/2022 08:11) Temperature: 98.3 F [36.8 C] (12/21/2022 08:11) Weight: 172.9 lb [78.43 kg] (12/21/2022 08:11) Height: 67 in [170.2 cm] (12/21/2022 08:11) BMI: 27.1 O2 Sat: 96% (12/21/2022 08:11) Pain: 0 (12/21/2022 08:11) PAIN SCREEN: Patient is not having significant pain that they wish to discuss with their provider today. MEDICATION Over the Counter/Herbal Medications: The patient denies taking any outside medications or herbals. 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 has no concerns about toxic exposure(s) while serving in the Armed [employer]. The Cutler/caregiver was informed that we will continue to ask this screening question every 5 years. They can contact their provider/healthcare team if they have concerns about exposures and would like to be screened sooner. Printed information was offered and provided if desired. Suicide Screen: C-SSRS Screening [place] Suicide Severity Rating Scale (C-SSRS) screener 1. Over the past month, have you wished you were or wished you could go to sleep and not wake up? No 2. Over the past month, have you had any actual thoughts of killing yourself? No 3. Over the past month, have you been thinking about how you might do this? Response not required due to responses to other questions. 4. Over the past month, have you had these thoughts and had some intention of acting on them? Response not required due to responses to other questions. 5. Over the past month, have you started to work out or worked out the details of how to kill yourself? Response not required due to responses to other questions. 6. If yes, at any time in the past month did you intend to carry out this plan? Response not required due to responses to other questions. 7. In your lifetime, have you ever done anything, started to do anything, or prepared to do anything to end your life (for example, collected pills, obtained a gun, gave away valuables, went to the roof but didn't jump)? No 8. If YES, was this within the past 3 months? Response not required due to responses to other questions. Depression Screening: Perform PHQ-2 A PHQ-2 screen was performed. The score was 0 which is a negative screen for depression. Over the past two weeks, how often have you been bothered by the following problems? 1. Little interest or pleasure in doing things Not at all 2. Feeling down, depressed, or hopeless Not at all Alcohol Use Screen (AUDIT-C): Alcohol Screen: SCREEN FOR ALCOHOL (AUDIT-C) An alcohol screening test (AUDIT-C) was negative (score=4). 1. How often did you have a drink containing alcohol in the past year? Four or more times a week 2. How many drinks containing alcohol did you have on a typical day when you were drinking in the past year? One or two drinks 3. How often did you have six or more drinks on one occasion in the past year? Never Nursing Annual Screening: Fall History Screen During the past 12 months, have you had any falls? Patient does not report any falls in the past 12 months. MEDICATIONS: Patient is on one of the following medication classes: Antihypertensives, Antidepressants, Antipsychotics, Diuretics, or Controlled substance medication used for pain. FALL RISK ADVICE: Fall Risk Advice provided. Handout entitled Fall Prevention At Home reviewed and given to patient and/or significant other. Script Talk Screen Are you able to read your prescription bottles with your glasses, magnifiers or other aids? Yes or patient not taking any prescriptions. Skin Screen Patient reports any current pressure ulcers, a history of pressure ulcers, or a wound from a medical lead or Patient is bed-confined or a wheelchair-user or Patient requires assistance to transfer/change position No, Skin Screen is Negative Home Abuse/Violence Screen Is your home free of abuse and violence? Yes MOVE! Program Screen Body Mass Index (BMI)= 27.1 [place]: No data available [place] Hgb A1C: No data available [place] Hgb A1C: No data available Point of Care Hgb A1C: POC HGB A1C____ Outpatient Nutrition Screen Body Mass Index (BMI)= 27.1 [place]: No data available [place] Hgb A1C: No data available [place] Hgb A1C: No data available Point of Care Hgb A1C: POC HGB A1C____ Is patient's BMI less than 18.5? No Does patient have swallowing, coughing, or chewing problems affecting oral intake? No Has patient experienced unplanned weight loss or gain greater than 10 pounds over the last 2 months? No Is patient's Hgb A1C (Glycosylated Hemoglobin) greater than 9.5? Information not available Is patient receiving Total Parenteral Nutrition (TPN) or Tube Feedings? No Patient Health Education Screen BARRIERS/SPECIAL NEEDS: No barriers identified PREFERRED STYLE OF LEARNING: No preference stated Client Assistive Service (LYNETTE) Screen Does the patient require assistance with outpatient visit? No Tobacco Use Screening: The patient is a former tobacco user. The patient quit fifteen or more years ago. Herpes Zoster (Shingles) Vaccine: The patient declines to receive the recommended dose of zoster (shingles) vaccine. Immunization: ZOSTER RECOMBINANT Refusal Reason: PATIENT DECISION Patient refuses all immunization(s) in the ZOSTER group Date Documented: 12/21/22 08:16 Pneumococcal PPSV23 (Pneumovax): The patient declines to receive the recommended dose of PPSV23 vaccine. Immunization: PNEUMOCOCCAL POLYSACCHARIDE PPV23 Refusal Reason: PATIENT DECISION Patient refuses all immunization(s) in the PneumoPPV group Date Documented: 12/21/22 08:17 Homelessness/Food Insecurity Screen: In the past 2 months, have you been living in stable housing that you own, rent, or stay in as part of a household? Yes - Living in stable housing. Are you worried or concerned that in the next 2 months you may NOT have stable housing that you own, rent, or stay in as part of a household? No - Not worried about housing near future The Cutler reports the following: Within the past 12 months, you worried whether your food would run out before you got money to buy more. Never true Within the past 12 months, the food you bought just didn't last and you didn't have money to get more. Never true /steffi/ LILY DYER LPN STAFF NURSE Signed: 12/21/2022 08:18 12/21/2022 ADDENDUM STATUS: UNSIGNED You may not VIEW this UNSIGNED Addendum. LILY DYER [facility] Dec 21, 2022 06:00 AM INTERNAL MEDICINE NOTE: LOCAL TITLE: MEDICINE CLINIC NOTE STANDARD TITLE: INTERNAL MEDICINE NOTE DATE OF NOTE: DEC 21, 2022@06:00 ENTRY DATE: DEC 19, 2022@07:16:54 AUTHOR: HAYLEE STREETER COSIGNER: URGENCY: STATUS: COMPLETED Nurse's Notes Reviewed. Chief Complaint: Annual HPI: 72 year old pt with a history of dyslipidemia, elevated blood pressure who is here for his annual appt. Pt is currently co-managed with [facility]. Pt states that he is doing well. He reports being started on a medication for his nocturia and then for sleep (unable to recall the medications). Past medical history: *Hypertension *Dyslipidemia *Nocturia Medications: Active Non-VA Medications Status 1) Non-VA ATORVASTATIN CALCIUM 40MG TAB 20MG MOUTH AT ACTIVE BEDTIME 2) Non-VA ENALAPRIL MALEATE 5MG TAB 5MG MOUTH TWICE A ACTIVE DAY 3) Non-VA MELATONIN CAP/TAB 10MG MOUTH AT BEDTIME ACTIVE Non-VA TAMSULOSIN 0.4MG DAILy Non-VA TRAZADONE 150MG QHS PRN Medication allergies: NKDA IM - Immunizations Immunization Series Date Facility Reaction Info COVID-19 (Plex[facility]), MRNA, LNP-S, P* 2 12/13/2020 [place] <C> 1 11/22/2020 [place] <C> INFLUENZA, UNSPECIFIED FORMULATIO* [place] PNEUMOCOCCAL CONJUGATE PCV 13 [facility] C* TDAP [facility] C* <C> See the Detailed Immunizations Health Summary Component[DIM] for Comments Family History: *Sister with history of dementia/Alzheimer's, at age 66 *Father r/t emphysema at age 76. 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 walking, plays pickle ball. Review of Systems: Feels well, no weight loss, good appetite. No ENT complaints No chest pain, palpitations, dyspnea on exertion, orthopnea, PND or peripheral edema. No shortness of breath, cough or respiratory distress. No abdominal pain, N/V, diarrhea, constipation or change in bowel habits. No urinary hesitancy, frequency, dysuria, decreased stream, hematuria + Nocturia. No numbness, tingling or weakness No memory problems No depression, anxiety or sleep problems No joint pain or swelling. No bleeding, bruising, rashes or lesions. Physical Exam: VS: Blood Pressure: 121/82 (12/21/2022 08:11) Pulse: 78 (12/21/2022 08:11) Respiration: 17 (12/21/2022 08:11) Temperature: 98.3 F [36.8 C] (12/21/2022 08:11) Weight: 172.9 lb [78.43 kg] (12/21/2022 08:11) Height: 67 in [170.2 cm] (12/21/2022 08:11) BMI: 27.1 O2 Sat: 96% (12/21/2022 08:11) Pain: 0 (12/21/2022 08:11) General No apparent distress Well developed, well nourished HEENT: Oropharynx (OP): Clear, PERRLA, Tympanic Membranes (TM) and external auditory canals clear bilaterally, neck supple, thyroid normal Lymph: No cervical adenopathy No supraclavicular adenopathy Chest/Lungs: Bilaterally clear with no respiratory distress Cardiac: RRR with normal S1 and S2; without murmur, gallop, rub, No carotid bruits, Peripheral pulses good, No edema Abdominal: Soft, Non-Tender, Non-Distended, Bowel Sounds Present, No masses Musculoskeletal: Good ROM: No effusions Neuro: Cranial nerves 2-12 intact, Sensory/motor intact, gait is steady, negative Romberg Skin: No concerning lesions, bleeding, bruising or discoloration Mental status: Alert and oriented x 3 Mood: Well dressed and groomed : Lab Data: 09/2022 labs completed at his last wellness physical. Other data: NA Assessment/Plan: 72 year old pt with a history of dyslipidemia, elevated blood pressure who is here for his annual appt. *Hypertension, BP in clinic . Continues with Enalapril *Dyslipidemia, continues with atorvastatin *Nocturia started on? *Colon cancer screening following with non va provider *AAA screening will place order for ultrasound *RTC 1 year with labs for annual and PRN Education Patient on Treatment Plan: Pt verbalizes understaning and is in agreement with plan of care, /steffi/ HAYLEE STREETER Nurse Practitioner Signed: 12/21/2022 16:[address] [facility] Dec 20, 2022 02:43 PM ADMINISTRATIVE NOTE: LOCAL TITLE: PRE VISIT SUMMARY NOTE STANDARD TITLE: ADMINISTRATIVE NOTE DICT DATE: DEC 20, 2022@14:43:56 ENTRY DATE: DEC 20, 2022@14:43:56 DICTATED BY: FISH MARTIN COSIGNER: URGENCY: STATUS: COMPLETED INCLUDED IN THIS LIST: Alphabetical list of active outpatient prescriptions dispensed from this [facility] (local) and dispensed from another [facility] or [facility] facility (remote) as well as inpatient orders (local pending and active), local clinic medications, locally documented non-VA medications, and local prescriptions that have or been discontinued in the past 90 days. NOTE The display of VA prescriptions dispensed from another [facility] or [facility] facility (remote) is limited to active outpatient prescription entries matched to National Drug File at the originating site and may not include some items such as investigational drugs, compounds, etc. MEDICATIONS Atorvastatin Tab Sig: TAKE 20MG BY MOUTH AT BEDTIME Comment: Medication prescribed by Non-VA provider. Documenting Facility & Provider: [facility]; CLARITZA MCMANUS Enalapril Tab Sig: TAKE 5MG BY MOUTH TWICE A DAY Comment: Medication prescribed by Non-VA provider. Documenting Facility & Provider: [facility]; CLARITZA MCMANUS Melatonin Cap/Tab Sig: TAKE 10MG BY MOUTH AT BEDTIME Comment: Non-VA medication that patient takes on their own. Documenting Facility & Provider: [facility]; CLARITZA MCMANUS Atorvastatin Tab Sig: TAKE 20MG BY MOUTH EVERY DAY Documenting Facility & Provider: [facility]; JIMBO WALKER Enalapril Tab Sig: TAKE 5MG BY MOUTH TWICE A DAY Comment: Patient wants to buy from Non-VA pharmacyMedication prescribed by Non-VA provider Documenting Facility & Provider: [facility]; JIMBO WALKER Non-VA Meds Last Documented On: Jul 05, 2019 FOR NURSING USE ONLY: [] POLISHING PAD MOUNTER review of medications completed completed: printed list is correct: PUT THIS SHEET IN RED DOG. [] POLISHING PAD MOUNTER review of medications completed: corrections made below: PUT THIS SHEET IN RED DOG [] POLISHING PAD MOUNTER review of medications not completed: GIVE THIS SHEET TO PATIENT TO REVIEW END OF NURSING USE SECTION SCANNED DOCUMENT SIGNATURE NOT REQUIRED Electronically Filed: 12/20/2022 by: FISH MOCK [facility]
== END 2023-12-01 09:42 | disposition home or self-care (01) ==
PROVIDERS: PCP Family Medicine; Visit Provider Family Medicine
DX: R60.0 Localized edema (principal); I70.90 Unspecified atherosclerosis; Z87.891 Personal history of nicotine dependence; I10 Essential (primary) hypertension; E78.5 Hyperlipidemia, unspecified
CPT/HCPCS: 93306

== ENCOUNTER 2024-09-26 13:09 | Outpatient (CLI) | payer MEDICARE, SELFPAY | END 2024-09-26 13:10 | disposition home or self-care (01) | PROVIDERS: PCP Family Medicine; Visit Provider Family Medicine | DX: E78.5 Hyperlipidemia, unspecified (principal); I10 Essential (primary) hypertension; Z12.5 Encounter for screening for malignant neoplasm of prostate | CPT/HCPCS: 80053; 80061; 82043; 82570; G0103 ==

== ENCOUNTER 2024-10-08 10:00 | Outpatient (CLI) | payer MEDICARE, SELFPAY ==
--- NOTE | 2024-10-08 10:30 | CRLHL7_ITS ---
For Patients: As a result of the Century Cures Act, medical imaging exams and procedure reports are released immediately into your electronic medical record. You may view this report before your referring provider. If you have questions, please contact your health care provider. INDICATION: Screening for abdominal aortic aneurysm. TECHNIQUE: Conventional two-dimensional grayscale, color-flow and pulsed Doppler ultrasound examination of the abdominal aorta and the common iliac arteries. COMPARISON: Abdominal aortic ultrasound of 10/02/2023 FINDINGS: Mild atherosclerotic disease is demonstrated, but the abdominal aorta is normal in caliber at 2.5 cm in maximal cross-sectional dimension above the level of the renal artery origins and 2.3 cm below the level of the renal arteries. The common iliac arteries are also normal in caliber. The right measures 1.2 cm in maximal cross-sectional dimension and the left 1.2 cm. IMPRESSION: Negative abdominal aortic ultrasound except for mild atherosclerosis. Dictated by Og Damon MD @ 10/10/2024 6:56:14 AM (Electronically Signed)
== END 2024-10-08 10:01 | disposition home or self-care (01) ==
LOC: US 10:01
PROVIDERS: PCP Family Medicine; Visit Provider Family Medicine
DX: Z13.6 Encounter for screening for cardiovascular disorders (principal); Z87.891 Personal history of nicotine dependence
CPT/HCPCS: 76775

== ENCOUNTER 2025-08-26 07:42 | Outpatient (CLI) | payer MEDICARE, SELFPAY ==
--- NOTE | 2025-08-26 09:15 | P.ANES_ITS ---
Anesthesia Charges Start Date/Time Anesthesia Start Date: 08/26/25 Anesthesia Start Time: 08:25 Stop Date/Time Anesthesia Stop Date: 08/26/25 Anesthesia Stop Time: 09:14 Coding CPT Codes CPT Codes: ALAN LWR INTST NDSC NOS - 22084 ([id number]) P2 - PATIENT W/MILD SYST DISEASE, QK - RESERVATIONS SALES AGENT 2-4 CNCRNT ANES PROC, QX - CUT IN WORKER SVC W/ MD MED DIRECTION
--- NOTE | 2025-08-26 09:15 | W.ANESCHARGE ---
Anesthesia Charges Start Date/Time Anesthesia Start Date: 08/26/25 Anesthesia Start Time: 08:25 Stop Date/Time Anesthesia Stop Date: 08/26/25 Anesthesia Stop Time: 09:14 Coding CPT Codes CPT Codes: ALAN LWR INTST NDSC NOS - 89609 ([id number]) P2 - PATIENT W/MILD SYST DISEASE, QK - MANAGER GRAPHIC 2-4 CNCRNT ANES PROC, QX - LEATHER PIECE INSPECTOR SVC W/ MD MED DIRECTION
--- NOTE | 2025-08-26 09:16 | P.ANES_ITS ---
Anesthesia Charges Start Date/Time Anesthesia Start Date: 08/26/25 Anesthesia Start Time: 08:25 Stop Date/Time Anesthesia Stop Date: 08/26/25 Anesthesia Stop Time: 09:14 Coding CPT Codes CPT Codes: ALAN LWR INTST NDSC NOS - 68132 ([id number]) P2 - PATIENT W/MILD SYST DISEASE, QK - ELECTRIC MOTOR REBUILDER 2-4 CNCRNT ANES PROC, QX - PASTE MAKER SVC W/ MD MED DIRECTION
--- NOTE | 2025-08-26 09:16 | W.ANESCHARGE ---
Anesthesia Charges Start Date/Time Anesthesia Start Date: 08/26/25 Anesthesia Start Time: 08:25 Stop Date/Time Anesthesia Stop Date: 08/26/25 Anesthesia Stop Time: 09:14 Coding CPT Codes CPT Codes: ALAN LWR INTST NDSC NOS - 02991 ([id number]) P2 - PATIENT W/MILD SYST DISEASE, QK - COMPANY CONTROLLER 2-4 CNCRNT ANES PROC, QX - DISTRIBUTION FIELD TECHNICIAN SVC W/ MD MED DIRECTION
--- NOTE | 2025-08-26 09:17 | P.ANES_ITS ---
Anesthesia Charges Start Date/Time Anesthesia Start Date: 08/26/25 Anesthesia Start Time: 08:25 Stop Date/Time Anesthesia Stop Date: 08/26/25 Anesthesia Stop Time: 09:14 Summary Extremes of Age - Over 70 or under 1: MDA Coding CPT Codes CPT Codes: ANES LWR INTST NDSC NOS - 18191 ([id number]) P2 - PATIENT W/MILD SYST DISEASE, QK - LABOR CREW SUPERVISOR 2-4 CNCRNT ANES PROC, QX - SET RIDER SVC W/ MD MED DIRECTION Additional Codes: Summary - Extremes of Age - Over 70 or under 1: DANIEL ([id number])
--- NOTE | 2025-08-26 09:17 | W.ANESCHARGE ---
Anesthesia Charges Start Date/Time Anesthesia Start Date: 08/26/25 Anesthesia Start Time: 08:25 Stop Date/Time Anesthesia Stop Date: 08/26/25 Anesthesia Stop Time: 09:14 Summary Extremes of Age - Over 70 or under 1: MDA Coding CPT Codes CPT Codes: ANES LWR INTST NDSC NOS - 29117 ([id number]) P2 - PATIENT W/MILD SYST DISEASE, QK - STORAGE MANAGEMENT ARCHITECT 2-4 CNCRNT ANES PROC, QX - SCIENTIST PROPAGATOR SVC W/ MD MED DIRECTION Additional Codes: Summary - Extremes of Age - Over 70 or under 1: DANIEL ([id number])
== END 2025-08-26 07:43 | disposition home or self-care (01) ==
LOC: OP CLINIC 07:43
PROVIDERS: PCP Family Medicine; Visit Provider Surgery
DX: Z12.11 Encounter for screening for malignant neoplasm of colon (principal); D12.0 Benign neoplasm of cecum; D12.1 Benign neoplasm of appendix; D12.2 Benign neoplasm of ascending colon; D12.3 Benign neoplasm of transverse colon; D12.5 Benign neoplasm of sigmoid colon; Z86.0100 Personal history of colon polyps, unspecified
CPT/HCPCS: 00811; 00812; 45385; 99100; J2704

== ENCOUNTER 2025-09-30 09:23 | Outpatient (CLI) | payer MEDICARE, SELFPAY | END 2025-09-30 09:24 | disposition home or self-care (01) | LOC: NFLDREF 10-05 17:13 | PROVIDERS: PCP Family Medicine; Referring Provider Family Medicine; Visit Provider Family Medicine | DX: I10 Essential (primary) hypertension (principal); E78.5 Hyperlipidemia, unspecified | CPT/HCPCS: 80053; 80061; 82043; 82570; G0103 ==